=== PATIENT | male | born 1995 | race Caucasian/White ===

== ENCOUNTER 2023-08-25 11:20 | Emergency (ER) | payer MEDICARE, MEDICAID ==
[~2023-08-25 11:20] MED LIST: DEPAKOTE 125MG125 MG PO; KLONOPIN 0.5MG0.5 MG PO; [UNRECOGNIZED DRUG - OTHER]; [UNRECOGNIZED DRUG - OTHER]
[2023-08-25 11:27] VITALS: BP 121/76; PULSE 94; TEMP 98.6
[2023-08-25 12:36] LABS: STREP A NEGATIVE
== END 2023-08-25 12:50 | disposition home or self-care (01) ==
LOC: COL.ER 11:20
PROVIDERS: Physician Assistant
DX: J06.9 Acute upper respiratory infection, unspecified (principal)